=== PATIENT | male | born 1955 | race Caucasian/White ===

== ENCOUNTER 2022-05-27 07:38 | Outpatient (CLI) | payer OTHER, SELFPAY ==
--- NOTE | 2022-05-27 08:00 | CRLHL7_ITS ---
For Patients: As a result of the Century Cures Act, medical imaging exams and procedure reports are released immediately into your electronic medical record. You may view this report before your referring provider. If you have questions, please contact your health care provider. Indication: SIGMOID STRICTURE Technique: Single contrast water soluble contrast enema performed. Fluoroscopic time 5 minutes 2 seconds. Comparison: Double-contrast barium enema 05/28/2010. IMPRESSION: The examination was technically difficult due to significant mucosal hypertrophy and luminal narrowing related to chronic sigmoid diverticulosis. Significant rectal distension occurred causing severe patient discomfort which required deposit in the examination and re- inserting the rectal tube to allow time for rectal decompression. Contrast extends to the splenic flexure but despite further maneuvers no further contrast extension beyond the splenic flexure could be obtained. In the future, CT colonography is the suggested test of choice for colon cancer screening in this patient and should be repeated at 2-3 year intervals. Dictated by Emmanuel Madrid MD @ 05/27/2022 10:09:56 AM (Electronically Signed)
== END 2022-05-27 07:39 | disposition home or self-care (01) ==
LOC: RAD 07:40
PROVIDERS: PCP Family Medicine; Visit Provider Family Medicine
DX: K56.699 Other intestinal obstruction unspecified as to partial versus complete obstruction (principal)
CPT/HCPCS: 74270